=== PATIENT | male | born 1995 | race Caucasian/White ===

== ENCOUNTER 2022-02-08 14:41 | Emergency (ER) | payer SELFPAY ==
--- NOTE | 2022-02-08 15:38 | Emergency Department Report ---
HPI - General Chief Complaint: Chest Pain Time Seen by Provider: 02/08/22 15:20 - HPI HPI: Room 23 The patient is a 26-year-old male present with a chief complaint of chest pain. The patient states he awakened this morning and stated he generally felt weak. The patient states he then developed some lightheadedness and numbness in the fingers of both hands. Patient states he developed chest tightness 20 minutes later became intermittent. The patient states he took an aspirin at home and his pain has improved. Patient currently gets his chest tightness a score of 1/10. Patient denies any preceding fevers, cough or URI symptoms. Patient stat es he did get short of breath and nauseous with this episode of pain. Patient denies pleurisy or cough. Patient denies any recent flights or long car trips. Patient states there was no emotional stress preceding his symptoms ED Past Medical Hx - Past Medical History Previous Medical History?: Yes - Surgical History Past Surgical History?: No - Family History Family history: no significant, other (Patient denies family history of premature heart disease) - Social History Smoking Status: Current Some Day Smoker (1 pack/week) Substance Use Type: None (Denies illicit drug use), Alcohol (2-3 drinks a week) - Medications Home Medications: Home Medications Medication Instructions Recorded Confirmed Last Taken Type Aspirin EC [Ecotrin] 325 mg PO QDAY #14 tablet. 02/08/22 Unknown Rx ED Review of Systems ROS: Stated complaint: CP/CANT BREATHE Other details as noted in HPI Constitutional: denies: fever Eyes: denies: eye pain ENT: denies: throat pain Respiratory: shortness of breath Cardiovascular: chest pain Endocrine: no symptoms reported Gastrointestinal: nausea, vomiting. denies: abdominal pain Genitourinary: denies: dysuria Musculoskeletal: denies: back pain Neurological: denies: headache Physical Exam - Physical Exam Vital Signs: Vital Signs 02/08/22 02/08/22 15:04 15:26 Temperature 98.7 F 98.1 F Pulse Rate 68 78 Respiratory 18 18 Rate Blood Pressure 112/75 Blood Pressure 124/76 [Right] O2 Sat by Pulse 100 99 Oximetry Physical Exam: GENERAL: The patient is well-developed well-nourished male sitting in chair not appearing to be in acute distress. [] HEENT: Normocephalic. Atraumatic. Extraocular motions are intact. Patient has moist mucous membranes. NECK: Supple. Trachea midline CHEST/LUNGS: Clear to auscultation. There is no respiratory distress noted. HEART/CARDIOVASCULAR: Regular. There is no tachycardia. There is no gallop rub or murmur. ABDOMEN: Abdomen is soft, nontender. Patient has normal bowel sounds. There is no abdominal distention. SKIN: There is no rash. There is no edema. There is no diaphoresis. NEURO: The patient is awake, alert, and oriented. The patient is cooperative. The patient has no focal neurologic deficits. The patient has normal speech. GCS 15 MUSCULOSKELETAL: There is no evidence of acute injury. ED Course Vital Signs 02/08/22 02/08/22 15:04 15:26 Temperature 98.7 F 98.1 F Pulse Rate 68 78 Respiratory 18 18 Rate Blood Pressure 112/75 Blood Pressure 124/76 [Right] O2 Sat by Pulse 100 99 Oximetry - Reevaluation(s) Reevaluation #1: 02/08/22 17:02 Patient states he feels improved ED Medical Decision Making - Lab Data Result diagrams: 02/08/22 15:35 02/08/22 15:35 Laboratory Tests 02/08/22 02/08/22 02/08/22 15:35 15:35 15:35 WBC 10.7 RBC 4.54 Hgb 14.7 Hct 44.0 MCV 97 H MCH 32 MCHC 33 RDW 12.8 L Plt Count 259 Lymph % (Auto) 13.4 Owsley % (Auto) 6.3 Eos % (Auto) 0.3 Baso % (Auto) 0.2 Lymph # (Auto) 1.4 Owsley # (Auto) 0.7 Eos # (Auto) 0.0 Baso # (Auto) 0.0 Seg Neutrophils % 79.8 H Seg Neutrophils # 8.5 H D-Dimer 139.45 Sodium 137 Potassium 4.2 Chloride 100.1 Carbon Dioxide 23 Anion Gap 18 BUN 11 Creatinine 1.0 Estimated GFR > 60 BUN/Creatinine Ratio 11 Glucose 130 H Calcium 8.7 Total Creatine Kinase 271 H CK-MB (CK-2) 2.5 CK-MB (CK-2) Rel Index 0.9 Troponin T < 0.010 TSH Free T4 02/08/22 15:45 WBC RBC Hgb Hct MCV MCH MCHC RDW Plt Count Lymph % (Auto) Owsley % (Auto) Eos % (Auto) Baso % (Auto) Lymph # (Auto) Owsley # (Auto) Eos # (Auto) Baso # (Auto) Seg Neutrophils % Seg Neutrophils # D-Dimer Sodium Potassium Chloride Carbon Dioxide Anion Gap BUN Creatinine Estimated GFR BUN/Creatinine Ratio Glucose Calcium Total Creatine Kinase CK-MB (CK-2) CK-MB (CK-2) Rel Index Troponin T TSH 1.000 Free T4 1.16 - EKG Data -: EKG Interpreted by Me EKG shows normal: sinus rhythm Rate: normal - EKG Data When compared to previous EKG there are: previous EKG unavailable Interpretation: pericarditis - Radiology Data Radiology results: report reviewed (Chest x-ray), image reviewed (Chest x-ray) interpreted by me: Chest x-ray-no definite focal infiltrates, no pneumothorax [facility] [address] [place] [address] XRay Report Signed Patient: GIRISH BISWAS MR#: [id number] : 1995 Acct:[id number] Age/Sex: 26 / M ADM Date: 02/08/22 Loc: ED Attending Dr: Ordering Physician: RADHA CHAU MD Date of Service: 02/08/22 P rocedure(s): XR chest routine 2V Accession Number(s): [id number] cc: RADHA CHAU MD Fluoro Time In Minutes: CHEST 2 VIEWS INDICATION: chest pain. COMPARISON: None FINDINGS: SUPPORT DEVICES: None. HEART: Within normal limits. LUNGS/PLEURA: No acute air space or interstitial disease. No pneumothorax. ADDITIONAL FINDINGS: None. IMPRESSION: 1. No acute findings. Signer Name: Joshua Weinstein MD Signed: 02/08/2022 4:43 PM Workstation Name: [id number] Transcribed By: JW Dictated By: Joshua Weinstein MD Electronically Authenticated By: Joshua Weinstein MD Signed Date/Time: 02/08/221642 DD/ 42 TD/TT: - Differential Diagnosis Anxiety, pericarditis, GERD, PE, ACS Critical care attestation.: If time is entered above; I have spent that time in minutes in the direct care of this critically ill patient, excluding procedure time. 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 Please follow-up with him for further evaluate) Time of Disposition: 17:02
[2022-02-08 15:59] LABS: Basophils % (Auto) 0.2 % (0.0-1.8); Eosinophils % (Auto) 0.3 % (0.0-4.3); Hemoglobin 14.7 gm/dl (11.8-15.2); Lymphocytes # (Auto) 1.4 K/mm3 (1.2-5.4); Lymphocytes % (Auto) 13.4 % (13.4-35.0); Mean Corpuscular HGB Conc 33 % (32-34); Mean Corpuscular Volume 97 fl (84-94); Monocytes # (Auto) 0.7 K/mm3 (0.0-0.8); Monocytes % (Auto) 6.3 % (0.0-7.3); Platelet Count 259 K/mm3 (140-440); Red Blood Count 4.54 M/mm3 (3.65-5.03); Red Cell Distribution Width 12.8 % (13.2-15.2)
[2022-02-08 16:26] LABS: BUN/Creatinine Ratio 11; Blood Urea Nitrogen 11 mg/dL (9-20); Calcium 8.7 mg/dL (8.4-10.2); Creatine Kinase MB 2.5 ng/mL (0.0-4.0); Hemolysis Index 7
[2022-02-08 16:44] VITALS: BP 126/83
--- NOTE | 2022-02-08 16:47 | XRay Report ---
CHEST 2 VIEWS INDICATION: chest pain. COMPARISON: None FINDINGS: SUPPORT DEVICES: None. HEART: Within normal limits. LUNGS/PLEURA: No acute air space or interstitial disease. No pneumothorax. ADDITIONAL FINDINGS: None. IMPRESSION: 1. No acute findings. Signer Name: Joshua Weinstein MD Signed: 02/08/2022 4:43 PM Workstation Name: [id number]
[2022-02-08 16:53] LABS: Free T4 (Free Thyroxine) 1.16 ng/dL (0.76-1.46)
--- NOTE | 2022-02-10 10:43 | Electrocardiograph Report ---
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
== END 2022-02-08 17:18 | disposition home or self-care (01) ==
LOC: ED 14:41
DX: R07.89 Other chest pain (principal); F17.210 Nicotine dependence, cigarettes, uncomplicated; Z79.899 Other long term (current) drug therapy
CPT/HCPCS: 36415; 71046; 80048; 82550; 82553; 84439; 84443; 84484; 85025; 85379; 93005; 99284